=== PATIENT | female | born 1995 | race Caucasian/White ===

== ENCOUNTER → 2017-11-27 | Outpatient (CLI) | payer OTHER ==
[~2017-11-27] MED LIST: DOCU100C37 PO; IBUP-1780 PO; OXYC-465 PO
--- NOTE | 2017-11-27 17:21 | Diagnostic Imaging Report ---
INDICATION: survey. TECHNIQUE: Multiple real-time grayscale images were obtained over the gravid uterus. COMPARISON: There are no prior studies available for comparison. FINDINGS: There is a single live fetus in transverse presentation. heart motion was noted and a rate of 142 BPM was recorded. There were no abnormalities identified. The growth parameters are fairly uniform. The placenta is anterior and there appears to be a marginal previa. The amniotic fluid volume is within normal limits. IMPRESSION: 1. There is single live fetus at approximately 20 weeks gestation +/-1.5 weeks. The EDC is April 16, 2018. 2. There are no abnormalities identified. 3. The growth parameters are fairly uniform. 4. There is a marginal anterior placenta previa. A short-term (4-6 week) followup exam would be recommended for further evaluation of the position of the placenta. Biometrical measurements are as follows: Biparietal 4.47 cm, age 19 weeks 4 days. Head circumference 17.08 cm, age 19 weeks 5 days. Abdominal circumference 14.84 cm, age 20 weeks 1 days. Femur length 3.29 cm, age 20 weeks 2 days. Sonographic estimate age: 20 weeks 0 days. Sonographic estimated date of delivery: 04/15/17. Estimated Weight: 333 gm (+/- 49 gm). LMP percentile: 61%. heart rate: 142 beats per minute. number: 1 of 1. Dictated by: Dictated on workstation # [id number]
== END ==
LOC: RAD 15:13
PROVIDERS: ATTEND Obstetrics & Gynecology
DX: Z36.89 Encounter for other specified antenatal screening (principal); Z3A.20 20 weeks gestation of pregnancy
CPT/HCPCS: 76805

== ENCOUNTER 2018-04-15 10:49 | Inpatient (IN) | payer OTHER ==
[2018-04-15] VITALS (61 sets, daily range): BP systolic 67–145; BP diastolic 31–89
[~2018-04-15] VITALS: Ht 172.7 cm; Wt 72.1 kg
--- NOTE | 2018-04-15 10:45 | NUR ---
Arrived to unit ambulates self accompanied by . Pt c/o decreased movement. Wt obtained and to room 320. gowned and urine sample obtained. To bed and monitors on. Oriented to room, call light and surroundings. bed controls explained. Reviewed plan of care with pt and at bedside.
--- NOTE | 2018-04-15 11:33 | NUR ---
Dr Gonzales called and notified of pt arrival, c/o, assessment, contraction noted with uterine irritability, fhr pattern reactive and sve. New orders for admission received. plan of care reviewed with pt and .
[2018-04-15] MEDS ORDERED: OXYTOCIN/NORMAL SALINE 500 ML IV SCH (11:36)
[2018-04-15] MEDS: D5 LR IV SOLUTION 1,000 ML IV SCH ×2 (12:54→17:45)
[2018-04-15] MEDS ORDERED: FLU QUADRIvalent (5+ YOA) 2018-2019 (AFLURIA) 0.5 ML IM ONE (13:00)
[2018-04-15 13:05] LABS: BILIRUBIN,URINE NEGATIVE (NEGATIVE); CLARITY,URINE CLEAR; COLOR,URINE YELLOW; GLUCOSE, URINE (UA) NEGATIVE (NEGATIVE); KETONES,URINE NEGATIVE (NEGATIVE); LEUKOCYTE ESTERASE ,URINE NEGATIVE (NEGATIVE); NITRITE,URINE NEGATIVE (NEGATIVE); PH,URINE 7 (5-9); PROTEIN,URINE NEGATIVE (NEGATIVE); UROBILINOGEN,URINE NORMAL (NORMAL)
[2018-04-15 13:08] LABS: BASOPHILS % (AUTO) 0 % (0-10); EOSINOPHILS % (AUTO) 0 % (0-10); HEMATOCRIT 37 % (35-52); LYMPHOCYTES # (AUTO) 1.6 X 10^3 (1.0-4.0); LYMPHOCYTES % (AUTO) 15 % (12-44); MEAN CORPUSCULAR HEMOGLOBIN 32 PG (25-34); MEAN CORPUSCULAR HGB CONC 35 G/DL (32-36); MEAN CORPUSCULAR VOLUME 91 FL (80-99); MEAN PLATELET VOLUME 9.7 FL (7.4-10.4); MONOCYTES # (AUTO) 0.8 X 10^3 (0.0-1.0); MONOCYTES % (AUTO) 8 % (0-12); NEUTROPHILS # (AUTO) 7.7 X 10^3 (1.8-7.8); NEUTROPHILS % (AUTO) 76 % (42-75); PLATELET COUNT 265 10^3/uL (130-400); RED BLOOD COUNT 4.08 10^6/uL (4.35-5.85); RED CELL DISTRIBUTION WIDTH 12.3 % (10.0-14.5); WHITE BLOOD COUNT 10.1 10^3/uL (4.3-11.0)
[2018-04-15 13:50] LABS: BACTERIA,URINE TRACE /HPF; SQUAMOUS EPITHELIAL CELL,UR 0-2 /HPF
[2018-04-15] MEDS ORDERED: SUFENTA 0.6MCG/ML BUPIVA 0.125 100 ML ONE (13:57)
[2018-04-15] MEDS ORDERED: CATHETER FLUSH 10 ML SYR IV SCH (14:00)
[2018-04-15] MEDS ORDERED: LIDOCAINE PF 2% 5 ML (XYLOCAINE) VIAL ONE ×3 (14:43→17:41)
[2018-04-15] MEDS ORDERED: fentaNYL INJECTION 100 MCG/2 ML AMP ONE ×2 (14:43→17:27)
[2018-04-15] MEDS ORDERED: BUPIVACAINE 0.25% 30 ML (SENSORCAINE) VIAL ONE (14:43)
--- NOTE | 2018-04-15 15:30 | History & Physical-OB ---
OB - Chief Complaint & HPI Date/Time Date of Admission: Date of Admission: Apr 15, 2018 at 11:34 Date seen by a Provider: Apr 15, 2018 Time Seen by a Provider: 15:30 Chief Complaint/History OB-Reason for Admission/Chief: Induction of Labor Hx : 2 Hx Para: 1 Expected Date of Delivery: Apr 17, 2018 Gestational Age in Weeks: 39 Gestational Age in Days: 5 Other reason for admission: Presented for decreased movement, and scheduled for induction tomorrow Admission Nurse Assessment Rev: Yes History of Labs O pos Antibody neg RI RPR NR HBsAg NR HIV NR GC neg GBS neg Allergies and Home Medications Allergies Coded Allergies: Penicillins (Verified Allergy, Mild, RASH, 12/25/15) systemic Home Medications Docusate Sodium 100 Mg Capsule, 100 MG PO BID Prescribed by: SUSANNE VALERO on 12/26/15717 Ibuprofen 800 Mg Tablet, 800 MG PO Q6H Prescribed by: SUSANNE VALERO on 12/26/15717 Oxycodone HCl/Acetaminophen 1 Each Tablet, 1-2 TAB PO Q4H PRN for PAIN Prescribed by: SUSANNE VALERO on 12/26/15717 Patient Home Medication List Home Medication List Reviewed: Yes OB - History Hx of Present Care: Yes Ultrasounds: Normal mid trimester US Obstetrical Complications: None Medical Complications: None Obstetrical History Hx : 2 Hx Para: 1 Hx Termination: No Hx Multiple Gestation: No Hx Stillbirth: No Hx Complication: No Hx Induced Hypertens: No Hx Maternal Gestational Diabet: No Delivery History Hx Dystocia: No Hx Large For Gestational Age I: No Hx Small for Gestational Age I: No Hx Section: No Hx Vaginal Delivery Post C-Sec: No Hx Blood Disorders: No Adverse Rxn to Tranfusion: No Patient Past Medical History n/a Social History/Family History Recent Infectious Disease Expo: No Alcohol Use: Denies Use Recreational Drug Use: No Immunizations Hepatitis A: No Hepatitis B: Yes Tetanus Booster (TDap): Less than 5yrs OB - Admission Exam Physical Exam Vitals: Vital Signs 04/15/18 04/15/18 11:08 13:45 Pulse 94 Resp 18 B/P (MAP) 113/72 (86) O2 Delivery Room Air HEENT: NCAT Heart: Rhythm Normal Lungs: Clear Abdomen: Gravid Extremities: Normal Reflexes: Normal Cervical Dilatation: 2cm Effacement: 75% Station: -1 Membranes: Intact Heart Rate: 130's Accelerations: Accelerations Present Decelerations: No Decelerations Short Term Variability: Present Inspector Quality Assurance Variability: Average (6-25) Contractions on Admission: 6-10 Minutes Apart Intensity: Mild Burger Scoring Tool (Modified) Dilation (cm): 1-2cm (1) Effacement (%): 51-79% (2) Descent/Station: -1,0 (2) Cervix Consistency: Soft (2) Cervix Position: Middle/Mid-Position (1) Add 1 point for: Each previous vaginal delivery (1) Burger Score: 9 Labs Laboratory Tests Test 04/15/18 11:40 04/15/18 12:40 Range/Units Urine Color YELLOW Urine Clarity CLEAR Urine pH 7 5-9 Urine Specific [place] 1.005 L 1.016-1.022 Urine Protein NEGATIVE NEGATIVE Urine Glucose (UA) NEGATIVE NEGATIVE Urine Ketones NEGATIVE NEGATIVE Urine Nitrite NEGATIVE NEGATIVE Urine Bilirubin NEGATIVE NEGATIVE Urine Urobilinogen NORMAL NORMAL MG/DL Urine Leukocyte Esterase NEGATIVE NEGATIVE Urine RBC (Auto) NEGATIVE NEGATIVE Urine RBC NONE /HPF Urine WBC NONE /HPF Urine Squamous Epithelial Cells 0-2 /HPF Urine Crystals NONE /LPF Urine Bacteria TRACE /HPF Urine Casts NONE /LPF Urine Mucus NEGATIVE /LPF Urine Culture Indicated NO White Blood Count 10.1 4.3-11.0 10^3/uL Red Blood Count 4.08 L 4.35-5.85 10^6/uL Hemoglobin 13.0 11.5-16.0 G/DL Hematocrit 37 35-52 % Mean Corpuscular Volume 91 80-99 FL Mean Corpuscular Hemoglobin 32 25-34 PG Mean Corpuscular Hemoglobin Concent 35 32-36 G/DL Red Cell Distribution Width 12.3 10.0-14.5 % Platelet Count 265 130-400 10^3/uL Mean Platelet Volume 9.7 7.4-10.4 FL Neutrophils (%) (Auto) 76 H 42-75 % Lymphocytes (%) (Auto) 15 12-44 % Monocytes (%) (Auto) 8 0-12 % Eosinophils (%) (Auto) 0 0-10 % Basophils (%) (Auto) 0 0-10 % Neutrophils # (Auto) 7.7 1.8-7.8 X 10^3 Lymphocytes # (Auto) 1.6 1.0-4.0 X 10^3 Monocytes # (Auto) 0.8 0.0-1.0 X 10^3 Eosinophils # (Auto) 0.0 0.0-0.3 10^3/uL Basophils # (Auto) 0.0 0.0-0.1 10^3/uL OB - Assessment/Plan/Diagnosis Assessment Assessment: induction of labor Admission Dx 23 yo @ 39.5 weeks Induction of term labor Decreased movement GBS neg Admission Status: Inpatient Order (span 2 midnights) Reason for Inpatient Admission: 23 yo @ 39.5 weeks Induction of term labor Decreased movement GBS neg Plan Plan: Induction Induction Method: per Pitocin Protocol JANNETH GONZALEZ DO Apr 15, 2018 15:30
[2018-04-15] MEDS ORDERED: LACTATED RINGERS 1,000 ML IV SCH (15:34)
[2018-04-15] MEDS ORDERED: diphenhydrAMINE 50 MG/ML INJ (BENADRYL) IV PRN (15:45)
[2018-04-15] MEDS ORDERED: NALOXONE 0.4 MG/ML 1 ML (NARCAN) VIAL IV PRN (15:45)
[2018-04-15] MEDS ORDERED: EPIDURAL (SUFENTA 0.6MCG/ML BUPIVA 0.125%) 100 ML BAG EPI PRN (15:45)
[2018-04-15] MEDS ORDERED: ONDANSETRON 4 MG/2 ML (SDV) Z0FRAN IV PRN (15:45)
[2018-04-15] MEDS ORDERED: BUPIVACAINE 0.5% 30 ML (SENSORCAINE) VIAL ONE (17:41)
[2018-04-15] MEDS ORDERED: OXYTOCIN/NORMAL SALINE 500 ML IV ONE ×2 (17:42→18:28)
[2018-04-15] MEDS ORDERED: ONDANSETRON 4 MG/2 ML (SDV) Z0FRAN ONE (17:42)
[2018-04-15] MEDS ORDERED: METHYLERGONOVINE 0.2 MG/ML (METHERGINE) AMP ONE (17:58)
[2018-04-15] MEDS ORDERED: ESMOLOL 100 MG/10 ML (BREVIBLOC) VIAL ONE (18:02)
[2018-04-16] VITALS (31 sets, daily range): BP systolic 87–120; BP diastolic 50–72
[2018-04-16] MEDS: D5 LR IV SOLUTION 1,000 ML IV SCH (01:47)
--- NOTE | 2018-04-16 04:01 | NUR ---
0401: Delivery of viable female infant. Infant to mom's chest and cleaned off. Pitocin turned off at this time. 0404: Cord clamped and cut. Mom remains in [facility] for repair. 0414: Delivery of intact placenta. Pitocin wide open. 0425: Pt. cleaned up, bed put back together, and legs brought down from [facility]. Fundus is firm and one under umbilicus. Minimal bleeding noted. Epidural turned off at this time. 0445: Fundus firm and one under umbilicus. Minimal bleeding noted. Mom is nursing infant at this time. 0500: Fundus firm and one under umbilicus. Moderate bleeding noted. Bleeding stops with fundal massage. 0515: Fundus firm and one under umbilicus. Minimal bleeding noted. 0530: Mom passes baby off for fundal massage. Fundus firm and one under umbilicus. Minimal bleeding noted. Mom still have very limited use of legs. Can barely wiggle them back and forth in bed. Lights turned off at this time and mom laid back to rest.
[2018-04-16] MEDS ORDERED: OXYTOCIN/NORMAL SALINE 500 ML IV SCH (04:25)
--- NOTE | 2018-04-16 04:29 | OB Labor & Delivery Record ---
L&D History Date of Service Date of Service: Apr 16, 2018 History Expected Date of Delivery: Apr 17, 2018 Gestational Age in Weeks: 39 Hx : 2 Hx Para: 1 Complications Events: Routine care Operative Indications (Cesarea: N/A-Vaginal Delivery Intrapartal Events: None L&D Stage1 Stage One Onset of Labor - Date: Apr 15, 2018 Monitors and Tracing Monitor Mode: External Heart Rate: 150 Monitor Accelerations: Uniform Station: -2 Usp Variability: Average (6-10) Short Term Variability: Present Presentation: Vertex Vital Signs VS - Last 72 Hours, by Label 04/15/18 04/15/18 04/15/18 04/15/18 11:08 13:00 13:15 13:30 Pulse 118 104 104 102 Resp 18 18 18 18 B/P (MAP) 131/89 (103) 127/68 (87) 125/74 (91) 116/77 (90) O2 Delivery Room Air 04/15/18 04/15/18 04/15/18 04/15/18 13:45 14:15 14:30 14:45 Temp 98.3 Pulse 94 110 111 111 Resp 18 18 18 18 B/P (MAP) 113/72 (86) 118/76 (90) 117/78 (91) 117/78 (91) O2 Delivery Room Air Room Air Room Air 04/15/18 04/15/18 04/15/18 04/15/18 14:55 15:00 15:05 15:07 Pulse 114 110 71 69 Resp 18 18 18 18 B/P (MAP) 112/70 (84) 121/67 (85) 67/31 (43) 86/50 (62) Pulse Ox 100 100 100 100 O2 Delivery Room Air 04/15/18 04/15/18 04/15/18 04/15/18 15:08 15:10 15:11 15:15 Pulse 75 122 111 122 Resp 18 18 18 18 B/P (MAP) 109/58 (75) 114/65 (81) 118/71 (87) Pulse Ox 100 100 100 100 O2 Delivery Room Air 04/15/18 04/15/18 04/15/18 04/15/18 15:17 15:20 15:25 15:30 Temp 98.2 Pulse 93 93 95 122 Resp 18 18 18 18 B/P (MAP) 120/60 (80) 120/60 (80) 122/71 (88) 115/66 (82) Pulse Ox 100 100 100 100 O2 Delivery Room Air 04/15/18 04/15/18 04/15/18 04/15/18 15:32 15:35 15:38 15:41 Pulse 93 107 115 110 Resp 18 18 18 18 B/P (MAP) 131/70 (90) 121/67 (85) 127/70 (89) 126/74 (91) Pulse Ox 100 100 100 100 04/15/18 04/15/18 04/15/18 04/15/18 15:45 15:55 16:00 16:02 Pulse 137 107 120 117 Resp 18 18 18 18 B/P (MAP) 114/70 (85) 127/62 (83) 145/67 (93) 123/60 (81) Pulse Ox 100 100 100 100 O2 Delivery Room Air Room Air 04/15/18 04/15/18 04/15/18 04/15/18 16:05 16:07 16:10 16:15 Pulse 116 118 107 116 Resp 18 18 18 18 B/P (MAP) 124/60 (81) 122/69 (86) 113/65 (81) 118/71 (87) Pulse Ox 100 100 100 100 O2 Delivery Room Air 04/15/18 04/15/18 04/15/18 04/15/18 16:20 16:25 16:30 16:45 Pulse 96 121 101 102 Resp 18 18 18 18 B/P (MAP) 121/71 (88) 125/74 (91) 113/74 (87) 113/69 (84) Pulse Ox 100 100 100 100 O2 Delivery Room Air Room Air 04/15/18 04/15/18 04/15/18 04/15/18 17:00 17:15 17:30 17:45 Temp 99.0 Pulse 112 105 100 Resp 18 18 18 B/P (MAP) 112/70 (84) 120/73 (89) 106/73 (84) Pulse Ox 100 O2 Delivery Room Air Room Air Room Air Room Air 04/15/18 04/15/18 04/15/18 04/15/18 18:00 18:15 18:30 18:45 Temp 98.2 Pulse 99 106 101 101 Resp 18 18 18 18 B/P (MAP) 116/62 (80) 119/66 (83) 112/69 (83) 127/69 (88) O2 Delivery Room Air Room Air Room Air Room Air 04/15/18 04/15/18 04/15/18 04/15/18 19:00 19:15 19:30 19:45 Temp 99.0 Pulse 93 108 115 Resp 18 18 18 B/P (MAP) 111/65 (80) 113/67 (82) 109/71 (84) O2 Delivery Room Air Room Air Room Air Room Air 04/15/18 04/15/18 04/15/18 04/15/18 20:00 20:15 20:30 20:45 Pulse 99 95 95 95 Resp 18 18 18 18 B/P (MAP) 105/72 (83) 118/72 (87) 118/72 (87) 118/69 (85) O2 Delivery Room Air Room Air Room Air Room Air 04/15/18 04/15/18 04/15/18 04/15/18 21:00 21:15 21:30 21:45 Temp 98.3 Pulse 95 108 115 97 Resp 18 18 18 18 B/P (MAP) 113/70 (84) 116/81 (93) 116/65 (82) 111/71 (84) O2 Delivery Room Air Room Air Room Air Room Air 04/15/18 04/15/18 04/15/18 04/15/18 22:00 22:15 22:30 22:45 Pulse 90 95 95 91 Resp 18 16 16 16 B/P (MAP) 113/68 (83) 115/71 (86) 114/72 (86) 123/64 (83) O2 Delivery Room Air Room Air Room Air Room Air 04/15/18 04/15/18 04/15/18 04/15/18 23:00 23:15 23:30 23:45 Temp 98.3 Pulse 104 107 93 107 Resp 16 16 16 16 B/P (MAP) 124/71 (88) 116/67 (83) 117/76 (90) 113/76 (88) O2 Delivery Room Air Room Air Room Air Room Air 04/16/18 04/16/18 04/16/18 04/16/18 00:00 00:15 00:30 00:45 Pulse 96 109 112 96 Resp 16 16 16 16 B/P (MAP) 107/72 (84) 108/72 (84) 105/70 (82) 120/69 (86) O2 Delivery Room Air Room Air Room Air Room Air 04/16/18 04/16/18 04/16/18 04/16/18 01:00 01:15 01:30 01:45 Temp 99.0 Pulse 96 87 97 101 Resp 16 16 16 16 B/P (MAP) 115/69 (84) 109/60 (76) 108/66 (80) 104/61 (75) O2 Delivery Room Air Room Air Room Air Room Air 04/16/18 04/16/18 02:00 02:15 Pulse 83 87 Resp 16 16 B/P (MAP) 108/63 (78) 107/66 (80) O2 Delivery Room Air Room Air Rupture of Membranes Spontaneous Ruture of Membrane: No Amniotic Membrane Rupture Time: 1540 Amniotic Fluid Membrane Tests: Nitrazine Positive Vaginal Bleeding Description: Normal Show Induction/Anesthesia Epidural Cath Placement - Time: 1518 Progress/Notes AROM performed this AM, pitocin augmentation used and epidural obtained. Patient progressed to complete and +1 station L&D Stage2 Stage Two Stage II Date: Apr 16, 2018 Monitors and Tracing Monitor Mode: External Heart Rate: 150 Monitor Accelerations: Uniform Monitor Decelerations: Variable Short Term Variability: Present Position: Right Occiput Anterior Presentation: Vertex Cord Descript/Complications Cord Vessel Description: 3 Vessels Delivery Type Delivery Method: Spontaneous Vaginal Anterior Shoulder: Right Episiotomy/Perineal Laceration Laceraction(s)/Extensions: Yes Episiotomy Description: Midline Degree (describe repair) Midline episiotomy repaired using 3-0 and 2-3 vicryl suture in usual fashion Condition of Infant Delivery 1 minute Comment: 9 5 minute Comment: 9 Notes live female weight 8lbs 3 oz Condition of Condition of : Living Exam: No Observed Abnormalities Resuscitation Resuscitation: N/A - Spontaneous Resp L&D Stage3 Stage Three Stage III Date: Apr 16, 2018 Pictocin Pitocin Administration mu/min: 20 Pitocin ml/hr: 20 Pitocin Administration Comment: 30 mu wide open at delivery of placenta Placenta Delivery Placenta Delivery: Spontaneous Delivery Summary Summary Estimated blood loss (mL): 300 Attending at delivery: Janneth Gonzalez DO Condition of Delivery Examined: Cervix Examined, Uterus Explored Post Hemorrhage: No Condition of Mother stable Condition of (s) stable JANNETH GONZALEZ DO Apr 16, 2018 04:29
[2018-04-16] MEDS ORDERED: MEASLES,MUMPS,RUBELLA 1 EA INJ SQ ONE (04:30)
[2018-04-16] MEDS ORDERED: WITCH HAZEL(TUCKS) 40 EA JAR TOP PRN (04:30)
[2018-04-16] MEDS ORDERED: BENZOCAINE/MENTHOL (DERMOPLAST) 56 ML CAN TP PRN (04:30)
[2018-04-16] MEDS ORDERED: TETANUS,DIPTH,PERTUSS P/F (BOOSTRIX) 0.5 ML VIAL IM ONE (04:30)
[2018-04-16] MEDS ORDERED: DIBUCAINE (NUPERCAINAL) 1% OINT 30 GM TOP PRN (04:30)
--- NOTE | 2018-04-16 04:31 | Discharge Inst-Women's Service ---
Discharge Inst-Women's Serv Depart Medication/Instructions New, Converted or Re-Newed RX: RX on Chart Final Diagnosis PPD 1 NVD Consults/Follow Up Additional Follow Up: Yes Orders/Referrals Dr. Gonzalez in 6 weeks Activity Activity: Activity as Tolerated Driving Instructions: No Driving for 1 Week NO SMOKING: NO SMOKING Nothing Inside Vagina: No Douching, No [place], No Tampons Diet Discharge Diet: No Restrictions Symptoms to Report to : Bleeding Excessive, Pain Increased, Fever Over 101 Degrees F, Vaginal Bleeding Increase, Questions/Concerns For Any Problems or Questions: Contact Your Physician JANNETH GONZALEZ DO Apr 16, 2018 4:31 am
[2018-04-16] MEDS ORDERED: ACHD5005 PO (04:33)
[2018-04-16] MEDS ORDERED: PNV1TABL67 PO (04:33)
[2018-04-16] MEDS ORDERED: Benzocaine/Menthol TP (04:33)
[2018-04-16] MEDS ORDERED: FERR325T18 PO (04:33)
[2018-04-16] MEDS ORDERED: DOCU100C37 PO (04:33)
[2018-04-16] MEDS ORDERED: IBUP-844 PO (04:33)
[2018-04-16] MEDS ORDERED: CATHETER FLUSH 10 ML SYR IV SCH (06:00)
[2018-04-16] MEDS: IBUPROFEN 600 MG (MOTRIN) TAB PO SCH ×3 (06:01→18:19)
--- NOTE | 2018-04-16 06:40 | NUR ---
Nurse at pt bedside. Fundus massaged. Minimal to no bleeding noted. Fundus is one above umbilicus. Displaced from a full bladder. Pt. says that her legs are feeling better, but they are still heavy. Pt is eating breakfast at this time. Epidural cath removed. Tip intact.
--- NOTE | 2018-04-16 07:17 | NUR ---
Report given to Jb Kamara RN.
--- NOTE | 2018-04-16 07:28 | Anesthesia-Regional Post-Op ---
Regional Patient Condition Mental Status: Alert, Oriented x3 Circulation: Same as Pre-Op Headache: Absent Sensation: Full Recovery Motor Block: Absent Post Op Complications Complications None Follow Up Care/Instructions Patient Instructions None needed. Anesthesia/Patient Condition Patient is doing well, no complaints, stable vital signs, no apparent adverse anesthesia problems. No complications reported per nursing. RINKU RIOS CRNA Apr 16, 2018 07:27
--- NOTE | 2018-04-16 08:10 | NUR ---
PT DOZING UPON THIS RN ENTERING ROOM. SELF INTRODUCED. PT VOICES THAT HER LEGS REMAIN HEAVY AND SHE DOESN'T THINK SHE CAN WALK. PLANNING ON LETTING PT REST FOR A FEW HOURS AND THIS RN WILL CHECK BACK, PT VERBALIZES UNDERSTANDING. S/O SLEEPING AT THE BEDSIDE, INFANT IN OPEN CRIB.
--- NOTE | 2018-04-16 08:35 | NUR ---
THIS RN CALLED TO PT'S BEDSIDE. PT VOICES THAT SHE NEEDS TO GO TO THE BATHROOM, STATES THAT HER RIGHT LEG IS FINE BUT THAT SHE LEFT FOOT FEELS TINGLY. + PERICARE. NEW PAD AND PANTIES IN PLACE. PT SITTING UP ON THE SIDE OF THE BED AND THEN STANDS AT THE SIDE OF THE BED WITH EASE. THIS RN REMAINS AT PT'S SIDE. PT VOICES THAT SHE FEELS FINE AND AMBULATES TO THE BATHROOM. BELONGINGS GATHERED WITH S/O AND PLACED ONTO CART. + VOID, + PERICARE PER PT. PT UP IN ROOM. PT THEN TRANSFERRED FROM -320 TO -309 VIA W/C IN STABLE CONDITION ACC BY THIS RN, S/O AND INFANT. FAMILY AND DR. GONZALEZ MET IN THE HALLWAY. PT TO BED. NEW GOWN ON THEY ARE PREPPING TO VIDEO. FAMILY AND TO PT'S BEDSIDE. PT DENIES ANY NEEDS AT THIS TIME, WILL CHECK BACK LATER. CALL LIGHT WITHIN REACH.
--- NOTE | 2018-04-16 09:25 | NUR ---
VISITORS REMAIN PRESENT. PT LYING IN BED, HOLDING OLDEST CHILD. VS OBTAINED. NO NEEDS VOICED.
[2018-04-16] MEDS: FERROUS SULF 325 MG (IRON) TAB PO SCH (11:13)
[2018-04-16] MEDS: DOCUSATE SODIUM 100 MG (COLACE) CAP PO SCH ×2 (11:13→21:27)
[2018-04-16] MEDS: PRENATAL VITAMIN 1 EA TAB PO SCH (11:13)
[2018-04-16] MEDS: HYDROcodone/APAP 5 MG/325 MG (LORTAB) TAB PO PRN ×3 (11:17→22:47)
--- NOTE | 2018-04-16 11:20 | NUR ---
PT REQUESTING PAIN MEDICATION. MEDS GIVEN PO; SEE EMAR FOR FURTHER. WARM BLANKET APPLIED TO PT'S TAILBONE SHE C/O IS THROBBING AND SORE. LIGHTS OUT, PT PREPPING TO REST. CALL LIGHT WITHIN REACH.
--- NOTE | 2018-04-16 12:40 | NUR ---
PT IN BED, VS OBTAINED. ROUTINE MOTRIN GIVEN PO; SEE EMAR FOR FURTHER.
--- NOTE | 2018-04-16 13:50 | NUR ---
PT UP TO THE BATHROOM, WHILE ON THE TOILET PT DECIDES THAT SHE'S READY TO TAKE HER SHOWER. SHOWER SET UP. IV DC'D. GAUZE AND BAND AID APPLIED OVER SITE. S/O REMAINS IN THE BATHROOM WITH PT. NO FURTHER NEEDS VOICED.
--- NOTE | 2018-04-16 16:45 | NUR ---
PT IN BED, PLAYING ON HER PHONE. CONTINUES LAYING ON HER LEFT SIDE. VS OBTAINED. PT DENIES ANY NEEDS, PT INFORMED THIS RN WILL RETURN AROUND [id number] WITH HER MEDS, UNDERSTANDING VERBALIZED. S/O AT THE BEDSIDE, RESTING.
[2018-04-16] MEDS: PHENAZOPYRIDINE 100 MG (PYRIDIUM) TABLET PO SCH (18:19)
--- NOTE | 2018-04-16 19:30 | NUR ---
REPORT TO Julia PRATT RN.
[2018-04-17 00:37] VITALS: BP 88/56
[2018-04-17] MEDS: IBUPROFEN 600 MG (MOTRIN) TAB PO SCH ×2 (00:37→07:25)
[2018-04-17 05:05] VITALS: BP 86/54
[2018-04-17 05:57] LABS: BASOPHILS % (AUTO) 0 % (0-10); EOSINOPHILS # (AUTO) 0.2 10^3/uL (0.0-0.3); EOSINOPHILS % (AUTO) 2 % (0-10); HEMATOCRIT 30 % (35-52); HEMOGLOBIN 10.5 G/DL (11.5-16.0); LYMPHOCYTES # (AUTO) 2.9 X 10^3 (1.0-4.0); LYMPHOCYTES % (AUTO) 27 % (12-44); MEAN CORPUSCULAR HEMOGLOBIN 32 PG (25-34); MEAN CORPUSCULAR HGB CONC 35 G/DL (32-36); MEAN CORPUSCULAR VOLUME 94 FL (80-99); MEAN PLATELET VOLUME 9.3 FL (7.4-10.4); MONOCYTES % (AUTO) 9 % (0-12); NEUTROPHILS # (AUTO) 6.8 X 10^3 (1.8-7.8); NEUTROPHILS % (AUTO) 62 % (42-75); PLATELET COUNT 216 10^3/uL (130-400); RED BLOOD COUNT 3.24 10^6/uL (4.35-5.85); RED CELL DISTRIBUTION WIDTH 12.6 % (10.0-14.5); WHITE BLOOD COUNT 10.9 10^3/uL (4.3-11.0)
--- NOTE | 2018-04-17 08:35 | NUR ---
DR. GONZALEZ HERE TO SEE PT.
[2018-04-17] MEDS: FERROUS SULF 325 MG (IRON) TAB PO SCH (08:59)
[2018-04-17] MEDS: DOCUSATE SODIUM 100 MG (COLACE) CAP PO SCH (08:59)
[2018-04-17 09:00] VITALS: BP 95/53
[2018-04-17] MEDS: PRENATAL VITAMIN 1 EA TAB PO SCH (09:00)
[2018-04-17] MEDS: PHENAZOPYRIDINE 100 MG (PYRIDIUM) TABLET PO SCH (09:00)
[2018-04-17] MEDS: HYDROcodone/APAP 5 MG/325 MG (LORTAB) TAB PO PRN (09:00)
--- NOTE | 2018-04-17 09:05 | Postpartum Progress Note ---
Note Note Day # 1 Subjective: Patient is without complaints. Ambulating, voiding. Tolerating a regular diet without nausea or vomiting. Normal lochia. Pain is well controlled with oral pain medications. Objective: Physical Exam: General - Alert and oriented, no apparent distress Abdomen - Soft, appropriately tender to palpation, non-distended, fundus firm at umbilicus Extremities - no edema, negative Aiden's bilaterally Assessment: PPD 1 NVD Acute blood loss anemia Plan: Routine care. Encourage breast feeding. Encourage ambulation. Ferrous sulfate supplementation. Plan for discharge today Vitals - Labs Vital Signs - I&O Vital Signs Date Time Temp Pulse Resp B/P (MAP) Pulse Ox O2 Delivery O2 Flow Rate FiO2 04/17/18 05:05 97.8 82 18 86/54 (65) 98 Room Air 04/17/18 00:37 97.6 86 18 88/56 (67) 98 Room Air 04/16/18 20:00 97.9 88 18 109/72 (84) 98 Room Air 04/16/18 16:45 98.4 97 18 87/50 (62) 100 Room Air 04/16/18 12:30 98.2 93 18 101/59 (73) 98 Room Air 04/16/18 09:25 98.8 83 18 107/65 (79) 97 Room Air Labs Laboratory Tests 04/17/18 05:45: White Blood Count 10.9, Red Blood Count 3.24L, Hemoglobin 10.5L, Hematocrit 30L , Mean Corpuscular Volume 94, Mean Corpuscular Hemoglobin 32, Mean Corpuscular Hemoglobin Concent 35, Red Cell Distribution Width 12.6, Platelet Count 216, Mean Platelet Volume 9.3, Neutrophils (%) (Auto) 62, Lymphocytes (%) (Auto) 27, Monocytes (%) (Auto) 9, Eosinophils (%) (Auto) 2, Basophils (%) (Auto) 0, Neutrophils # (Auto) 6.8, Lymphocytes # (Auto) 2.9, Monocytes # (Auto) 1.0, Eosinophils # (Auto) 0.2, Basophils # (Auto) 0.0 JANNETH GONZALEZ DO Apr 17, 2018 09:05
--- NOTE | 2018-04-17 09:05 | NUR ---
PT IN BED. VS OBTAINED. MEDS GIVEN; SEE EMAR FOR FURTHER. INITIAL SHIFT ASSESSMENT COMPLETED; SEE INTERVENTION FOR FURTHER. PLANS TO GO HOME TODAY. NO NEEDS VOICED AT THIS TIME.
--- NOTE | 2018-04-17 10:30 | NUR ---
DISCHARGE PAPERS PROVIDED AND REVIEWED WITH PT PER THIS RN. PRESCRIPTIONS AND FOLLOW UP APPOINTMENT CARDS ALSO PLACED INTO DISCHARGE FOLDER. PAPER SIGNED.
--- NOTE | 2018-04-17 10:35 | NUR ---
PRESCRIPTION RECEIVED FROM DR. GONZALEZ FOR PYRIDIUM TO CALL INTO PT'S PHARMACY.
--- NOTE | 2018-04-17 10:51 | NUR ---
PYRIDIUM RX CALLED INTO [facility] AT THIS TIME.
--- NOTE | 2018-04-17 11:15 | NUR ---
PT DISCHARGED FROM -309 TO PERSONAL AUTO VIA AMBULATORY IN STABLE CONDITION ACC BY S/O AND Lavinia PABON RN.
== END 2018-04-17 11:15 | disposition home or self-care (01) | DRG 806 ==
LOC: WSo 10:49 → LDRP 10:49 → WSo 11:34 → LDRP 11:34
PROVIDERS: ADMIT Obstetrics & Gynecology; ATTEND Obstetrics & Gynecology
PROC: 10E0XZZ Delivery of Products of Conception, External Approach (ICD-10-PCS; principal; 2018-04-16)
PROC: 0W8NXZZ Division of Female Perineum, External Approach (ICD-10-PCS; 2018-04-16)
DX: O36.8130 Decreased fetal movements, third trimester, not applicable or unspecified (principal); O90.81 Anemia of the puerperium; D62 Acute posthemorrhagic anemia; Z3A.39 39 weeks gestation of pregnancy; Z37.0 Single live birth
CPT/HCPCS: 36415; 81000; 85025; 86850; 86900; 86901; 99212

== ENCOUNTER 2021-02-15 05:37 | Outpatient (CLI) | payer OTHER ==
[~2021-02-15] VITALS: Ht 172.7 cm; Wt 56.8 kg
[~2021-02-15 05:37] MED LIST changes: +ACHD5005 PO; +Benzocaine/Menthol TP; +FERR325T18 PO; +IBUP-844 PO; -OXYC-465 PO; +OXYC-556 PO; +PNV1TABL67 PO
[2021-02-16] MEDS ORDERED: MV-M1TAB20 PO (09:52)
[2021-02-16] MEDS ORDERED: ASCO250T55 PO (09:52)
[2021-02-16] MEDS ORDERED: MULT-1136 PO (09:52)
== END 2021-02-16 10:12 | disposition home or self-care (01) ==
LOC: PREOP 05:37
PROVIDERS: ATTEND Otolaryngology Otolaryngology/Facial Plastic Surgery
DX: Z01.818 Encounter for other preprocedural examination (principal)

== ENCOUNTER 2021-02-23 06:14 | Day surgery (SDC) | payer OTHER ==
[2021-02-23] VITALS (10 sets, daily range): BP systolic 104–130; BP diastolic 68–95
[~2021-02-23] VITALS: Ht 172 cm; Wt 56.8 kg
[~2021-02-23 06:14] MED LIST changes: +ASCO250T55 PO; +MULT-1136 PO; +MV-M1TAB20 PO
[2021-02-23] MEDS ORDERED: HYDROCORTISONE 100 MG/2 ML (Solu-CORTEF) VIAL IV ONE (06:30)
[2021-02-23] MEDS ORDERED: fentaNYL INJ 100 MCG/2 ML AMP ONE (06:38)
[2021-02-23] MEDS ORDERED: MIDAZOLAM 2 MG/2 ML (VERSED) VIAL ONE (06:38)
[2021-02-23] MEDS ORDERED: ROCURONIUM 10 MG/ML 5 ML SYRINGE IV ONE (06:38)
[2021-02-23] MEDS ORDERED: LIDOCAINE PF 2% 5 ML (XYLOCAINE) VIAL ONE (06:38)
[2021-02-23] MEDS ORDERED: proPOfol 200 MG/20 ML (DIPRIVAN) VIAL IV ONE (06:38)
[2021-02-23] MEDS ORDERED: ONDANSETRON 4 MG/2 ML (SDV) Z0FRAN ONE (06:38)
[2021-02-23 06:47] LABS: BASOPHILS # (AUTO) 0.1 10^3/uL (0.0-0.1); BASOPHILS % (AUTO) 1 % (0-10); EOSINOPHILS # (AUTO) 0.1 10^3/uL (0.0-0.3); EOSINOPHILS % (AUTO) 1 % (0-10); HEMATOCRIT 35 % (35-52); HEMOGLOBIN 12.5 g/dL (11.5-16.0); LYMPHOCYTES # (AUTO) 3.8 10^3/uL (1.0-4.0); LYMPHOCYTES % (AUTO) 51 % (12-44); MEAN CORPUSCULAR HEMOGLOBIN 32 pg (25-34); MEAN CORPUSCULAR HGB CONC 36 g/dL (32-36); MEAN CORPUSCULAR VOLUME 89 fL (80-99); MEAN PLATELET VOLUME 9.2 fL (9.0-12.2); MONOCYTES # (AUTO) 0.6 10^3/uL (0.0-1.0); MONOCYTES % (AUTO) 8 % (0-12); NEUTROPHILS # (AUTO) 2.9 10^3/uL (1.8-7.8); NEUTROPHILS % (AUTO) 40 % (42-75); PLATELET COUNT 263 10^3/uL (130-400); WHITE BLOOD COUNT 7.4 10^3/uL (4.3-11.0)
[2021-02-23] MEDS ORDERED: COCAINE HCL 4% 2 ML SYR ONE (06:55)
[2021-02-23] MEDS ORDERED: BSS 15 ML ONE (06:55)
[2021-02-23] MEDS ORDERED: PHENYLEPHRINE 0.5% NASAL SPR (NEO-SYNEPHRINE) REG ONE (06:55)
[2021-02-23] MEDS ORDERED: LIDOCAINE/EPI 1%-1:100,000 (XYLOCAINE) 20ML ONE (06:55)
[2021-02-23] MEDS: LACTATED RINGERS 1,000 ML IV PRN ×2 (07:09→08:00)
[2021-02-23 07:13] LABS: CALCIUM 9.1 MG/DL (8.5-10.1); CREATININE SERUM 0.72 MG/DL (0.60-1.30); POTASSIUM 3.2 MMOL/L (3.6-5.0)
--- NOTE | 2021-02-23 07:17 | Progress Note-Pre Operative ---
Pre-Operative Progress Note H&P Reviewed The H&P was reviewed, patient examined and no changes noted. Date Seen by Provider: Feb 23, 2021 Time Seen by Provider: 06:30 Date H&P Reviewed: Feb 23, 2021 Time H&P Reviewed: 06:30 Pre-Operative Diagnosis: Bilat Chronic Sinusitis, Deviated nasal septum, Bilat Hyper of INf Turbs JANNETH CASTILLO MD Feb 23, 2021 07:17
[2021-02-23] MEDS ORDERED: NEOSTIGMINE 3 MG/3 ML VIAL ONE (08:24)
[2021-02-23] MEDS ORDERED: GLYCOPYRROLATE 0.2 MG/ML (ROBINUL) 2 ML VIAL ONE (08:24)
--- NOTE | 2021-02-23 08:25 | Progress Note-Post Operative ---
Post-Operative Progess Note Surgeon (s)/Invoice Control Clerk (s) Surgeon JANNETH CASTILLO MD Invoice Control Clerk n/a Pre-Operative Diagnosis Bilat Chronic Sinusitis, Deviated nasal septum, Bilat Hyper of INf Turbs Post-Operative Diagnosis same Post-Op Procedure Note Date of Procedure: Feb 23, 2021 Name of Procedure Performed: Bilat Ess, Nasal Septoplasty, Bilat Red of Inf Turbinates Description & Findings Description and Findings: n/a Anesthesia Type get Estimated Blood Loss minimal Packing none. Specimen(s) collected/removed bilat chreonic sinus disease JANNETH CASTILLO MD Feb 23, 2021 08:25
[2021-02-23] MEDS ORDERED: SEVOFLURANE (ULTANE) 15 ML INHAL SOLN ONE (08:27)
[2021-02-23] MEDS ORDERED: PROMETHAZINE INJ 25 MG/ML (PHENERGAN) AMP IVP PRN (08:30)
[2021-02-23] MEDS ORDERED: predniSONE 20 MG TAB PO ONE (08:30)
[2021-02-23] MEDS ORDERED: D5 1/2 NS W/KCL 20 MEQ/L 1,000 ML IV SCH (08:30)
[2021-02-23] MEDS ORDERED: HYDROcodone/APAP 5 MG/325 MG (LORTAB) TAB PO PRN (08:30)
[2021-02-23] MEDS ORDERED: ACHD5005 PO (09:05)
[2021-02-23] MEDS ORDERED: LEVAQUIN PO (09:05)
[2021-02-23] MEDS ORDERED: PRD20T PO (09:05)
[2021-02-23] MEDS ORDERED: HYDROcodone/APAP 5 MG/325 MG (LORTAB) TAB ONE (09:17)
--- NOTE | 2021-02-23 09:21 | Anesthesia-General Post-Op ---
General Patient Condition Mental Status/LOC: Same as Preop Cardiovascular: Satisfactory Nausea/Vomiting: Absent Respiratory: Satisfactory Pain: Controlled Complications: Absent Post Op Complications Complications None Follow Up Care/Instructions Patient Instructions None needed. Anesthesia/Patient Condition Patient Condition Patient is doing well, no complaints, stable vital signs, no apparent adverse anesthesia problems. No complications reported per nursing. RINKU RIOS CRNA Feb 23, 2021 09:21
== END 2021-02-23 11:05 | disposition home or self-care (01) ==
LOC: SDC 06:14
PROVIDERS: ATTEND Otolaryngology Otolaryngology/Facial Plastic Surgery
DX: J32.0 Chronic maxillary sinusitis (principal); J32.2 Chronic ethmoidal sinusitis; J32.1 Chronic frontal sinusitis; J34.2 Deviated nasal septum; J34.89 Other specified disorders of nose and nasal sinuses; R09.81 Nasal congestion; J34.3 Hypertrophy of nasal turbinates; Z11.2 Encounter for screening for other bacterial diseases
CPT/HCPCS: 36415; 80048; 84703; 85025; 87081

== ENCOUNTER → 2021-05-24 | Outpatient (CLI) | payer OTHER ==
[~2021-05-24] MED LIST changes: +LEVAQUIN PO; +PRD20T PO
[2021-05-24 09:27] LABS: BASOPHILS % (AUTO) 0 % (0-10); EOSINOPHILS % (AUTO) 0 % (0-10); HEMATOCRIT 37 % (35-52); LYMPHOCYTES # (AUTO) 1.4 10^3/uL (1.0-4.0); LYMPHOCYTES % (AUTO) 17 % (12-44); MEAN CORPUSCULAR HEMOGLOBIN 31 pg (25-34); MEAN CORPUSCULAR HGB CONC 35 g/dL (32-36); MEAN CORPUSCULAR VOLUME 87 fL (80-99); MEAN PLATELET VOLUME 9.1 fL (9.0-12.2); MONOCYTES # (AUTO) 0.5 10^3/uL (0.0-1.0); MONOCYTES % (AUTO) 6 % (0-12); NEUTROPHILS # (AUTO) 6.3 10^3/uL (1.8-7.8); NEUTROPHILS % (AUTO) 76 % (42-75); PLATELET COUNT 317 10^3/uL (130-400); WHITE BLOOD COUNT 8.2 10^3/uL (4.3-11.0)
[2021-05-24 11:05] LABS: ALKALINE PHOSPHATASE 63 U/L (40-136); BILIRUBIN,TOTAL 0.5 MG/DL (0.1-1.0); BUN/CREATININE RATIO 15; CALCIUM 9.2 MG/DL (8.5-10.1); CARBON DIOXIDE 22 MMOL/L (21-32); CHLORIDE 102 MMOL/L (98-107); GFR ESTIMATED 126; GLUCOSE 98 MG/DL (70-105); SODIUM 138 MMOL/L (135-145)
[2021-05-24 11:06] LABS: ALANINE AMINOTRANSFERASE 10 U/L (0-55); ALBUMIN 4.8 GM/DL (3.2-4.5); TOTAL PROTEIN 7.8 GM/DL (6.4-8.2)
== END ==
LOC: LAB FS 09:02
PROVIDERS: ATTEND Registered Nurse Emergency
DX: R59.9 Enlarged lymph nodes, unspecified (principal)
CPT/HCPCS: 36415; 80053; 85025; 86141

== ENCOUNTER → 2021-06-05 | Outpatient (CLI) | payer OTHER ==
--- NOTE | 2021-06-05 11:14 | Diagnostic Imaging Report ---
INDICATION: Swollen lymph nodes and right body edema. EXAMINATION: PA and lateral chest obtained at 9:48 AM. FINDINGS: The heart and mediastinal silhouette are normal in appearance. There is hyperinflation but the lungs are otherwise clear. There is no pneumothorax or pleural fluid. IMPRESSION: Hyperinflation. No acute pulmonary infiltrate. Dictated by: Dictated on workstation # [id number]
== END ==
LOC: LAB FS 09:38
PROVIDERS: ATTEND Registered Nurse Emergency
DX: J98.8 Other specified respiratory disorders (principal); R59.0 Localized enlarged lymph nodes; R60.9 Edema, unspecified; M79.10 Myalgia, unspecified site
CPT/HCPCS: 36415; 71046; 86038; 86039; 86200; 86431